=== PATIENT | female | born 1965 | race Caucasian/White ===

== ENCOUNTER 2020-09-24 19:28 | Emergency (ER) | payer OTHER ==
[~2020-09-24 19:28] MED LIST: IMITREX100 MG PO; NAPROXEN 250 M250 MG PO; NORCO 5-325 TA1 EACH PO; PROTONIX40 MG PO
[2020-09-24 20:14] LABS: HEMOGLOBIN 14.9 gm/dl (12.3-15.3); RED BLOOD COUNT 4.39 M/UL (4.00-5.10); WHITE BLOOD COUNT 13.6 K/UL (4.5-11.0)
[2020-09-24 20:34] LABS: BUN/CREATININE RATIO 13 (0-10)
[2020-09-24] MEDS ORDERED: LODINE CAP 300300 MG PO (22:12)
[2020-09-24] MEDS ORDERED: BENTYL 20MG TAB20 MG PO (22:12)
[2020-09-24] MEDS ORDERED: AUGMENTIN 875-1 EACH PO (22:12)
[2020-09-24] MEDS ORDERED: ZOFRAN ODT 4 MG4 MG PO (22:12)
== END 2020-09-24 22:45 | disposition home or self-care (01) ==
LOC: ER1 19:28
PROVIDERS: Physician Assistant
DX: K57.32 Diverticulitis of large intestine without perforation or abscess without bleeding (principal); Z90.49 Acquired absence of other specified parts of digestive tract; Z90.710 Acquired absence of both cervix and uterus; F17.210 Nicotine dependence, cigarettes, uncomplicated
CPT/HCPCS: 71045; 80053; 81001; 83605; 83735; 84100; 85025; 87040; 87086; 96374; 96375; 99284; J1885; J2270; J2405; Q9967

== ENCOUNTER 2021-04-19 18:49 | Emergency (ER) | payer OTHER ==
[~2021-04-19 18:49] MED LIST changes: +AUGMENTIN 875-1 EACH PO; +BENTYL 20MG TAB20 MG PO; +LODINE CAP 300300 MG PO; +ZOFRAN ODT 4 MG4 MG PO
[2021-04-19 19:45] LABS: HEMOGLOBIN 15.2 gm/dl (12.3-15.3); RED BLOOD COUNT 4.52 M/UL (4.00-5.10); WHITE BLOOD COUNT 8.4 K/UL (4.5-11.0)
[2021-04-19 20:18] LABS: BUN/CREATININE RATIO 17 (0-10)
== END 2021-04-19 23:50 | disposition home or self-care (01) ==
LOC: ER1 18:49
PROVIDERS: Physician Assistant Medical
DX: R10.9 Unspecified abdominal pain (principal); F17.200 Nicotine dependence, unspecified, uncomplicated
CPT/HCPCS: 80053; 81001; 83605; 85025; 96374; 96375; 99284; C9113; J1885; Q9967

== ENCOUNTER → 2022-01-17 | Outpatient (CLI) | payer BC | LOC: LAB 17:07 | DX: M54.6 Pain in thoracic spine (principal); M47.814 Spondylosis without myelopathy or radiculopathy, thoracic region | CPT/HCPCS: 72070; 73030 ==